=== PATIENT | male | born 1945 | race Caucasian/White ===

== ENCOUNTER 2019-03-30 18:25 | Inpatient (IN) | payer MEDICARE ==
[2019-03-30 19:00] LABS: ABSOLUTE EOSINOPHILS # (AUTO) 0.4 10^3/uL (0.0-0.6); ABSOLUTE LYMPHOCYTES (AUTO) 1.6 10^3/uL (0.5-4.7); ABSOLUTE MONOCYTES (AUTO) 0.6 10^3/uL (0.1-1.4); ABSOLUTE NEUT (AUTO) 2.5 10^3/uL (1.7-8.2); BASOPHILS % (AUTO) 0.7 % (0-2); EOSINOPHILS % (AUTO) 8.4 % (0-6); HEMATOCRIT 37.5 % (37.9-51.0); HEMOGLOBIN 12.3 g/dL (13.5-17.0); LYMPHOCYTES % (AUTO) 31.9 % (13-45); MEAN CORPUSCULAR HEMOGLOBIN 34.6 pg (27.0-33.4); MEAN CORPUSCULAR HGB CONC 32.9 g/dL (32.0-36.0); MEAN CORPUSCULAR VOLUME 105 fl (80-97); MONOCYTES % (AUTO) 11.3 % (3-13); PLATELET COUNT 185 10^3/uL (150-450); RED BLOOD COUNT 3.57 10^6/uL (4.35-5.55); SEGMENTED NEUTROPHILS % (AUTO) 47.7 % (42-78); TOTAL CELLS COUNTED % (AUTO) 100 %; WHITE BLOOD COUNT 5.2 10^3/uL (4.0-10.5)
[2019-03-30 19:04] LABS: INTERNATIONAL RATION (INR) 1.08; PROTHROMBIN TIME 14.6 SEC (11.4-15.4)
--- NOTE | 2019-03-30 19:09 | ER Document Report ---
ED General - General Stated Complaint: FEET SWELLING Time Seen by Provider: 03/30/19 18:33 Mode of Arrival: Medic Information source: Patient, Relative Notes: This is a 73-year-old man with a history of thyroid cancer, hyponatremia, chronic kidney disease, CHF (ejection fraction 20%), atrial fibrillation (no anticoagulation), bleeding ulcers. Patient is brought into the emergency room because of increasing swelling to the lower extremities and dyspnea on exertion with O2 sats at home going into the low 80s with activity. She denies chest pain. - HPI Onset: Last week Onset/Duration: Gradual Quality of pain: No pain Severity: None Pain Level: Denies Associated symptoms: Shortness of breath, Other. denies: Chest pain Exacerbated by: Walking Relieved by: Denies Similar symptoms previously: Yes Recently seen / treated by doctor: Yes - Related Data Allergies/Adverse Reactions: No Known Allergies Allergy (Verified 03/30/19 21:31) Past Medical History - General Information source: Patient, Relative - Social History Smoking Status: Unknown if Ever Smoked Cigarette use (# per day): No Chew tobacco use (# tins/day): No Frequency of alcohol use: None Drug Abuse: None Lives with: Family Family History: None Patient has suicidal ideation: No Patient has homicidal ideation: No - Past Medical History Cardiac Medical History: Reports: Hx Atrial Fibrillation, Hx Congestive Heart Failure Pulmonary Medical History: Reports: None EENT Medical History: Reports: None Neurological Medical History: Reports: None Endocrine Medical History: Reports: Hx Hypothyroidism Renal/ Medical History: Reports: Other - Chronic kidney disease Malignancy Medical History: Reports Other - Thyroid cancer GI Medical History: Reports: None Musculoskeletal Medical History: Reports None Psychiatric Medical History: Reports: None Traumatic Medical History: Reports: None Infectious Medical History: Reports: None Surgical Hx: Negative Review of Systems - Review of Systems Constitutional: denies: Chills, Fever EENT: No symptoms reported Cardiovascular: See HPI Respiratory: See HPI Gastrointestinal: No symptoms reported Genitourinary: No symptoms reported Male Genitourinary: No symptoms reported Musculoskeletal: See HPI Skin: See HPI Hematologic/Lymphatic: No symptoms reported Neurological/Psychological: No symptoms reported Physical Exam - Vital signs Vitals: Resp 23 H 03/30/19 18:37 Notes: Physical exam: GENERAL: Blood pressure 104/86, pulse 92, respiratory rate 30, O2 sat 98% on 2 L HEAD: Atraumatic, normocephalic. EYES: Pupils equal round and reactive to light, extraocular movements intact, sclera anicteric, conjunctiva are normal. ENT: TMs normal, nares patent, oropharynx clear without exudates. Moist mucous membranes. NECK: Normal range of motion, supple without obvious mass or JVD. LUNGS: Crackles at the bases HEART: Regular rate and rhythm without murmurs, rubs or gallops. ABDOMEN: Soft, normoactive bowel sounds. No tenderness to palpation. No guarding, no rebound. No masses appreciated. EXTREMITIES: 3+ lower extremity edema NEUROLOGICAL: Cranial nerves II through XII grossly intact. Normal speech, moving all extremities. PSYCH: Normal mood, normal affect. SKIN: Warm, Dry, normal turgor, no rashes or lesions noted. Course - Vital Signs Vital signs: Temp Pulse Resp BP Pulse Ox 97.7 F 76 16 95/62 L 94 03/30/19 22:31 03/31/19 00:14 03/31/19 00:14 03/30/19 23:01 03/31/19 00:14 - Laboratory Result Diagrams: 03/30/19 18:45 03/30/19 18:45 Laboratory results interpreted by me: 03/30/19 03/30/19 03/30/19 18:45 18:45 18:45 RBC 3.57 L Hgb 12.3 L Hct 37.5 L MCV 105 H MCH 34.6 H RDW 15.0 H Eosinophils % 8.4 H Direct Bilirubin 0.5 H NT-Pro-B Natriuret Pep 8380 H Total Protein 6.2 L Albumin 3.0 L Digoxin 03/30/19 18:45 RBC Hgb Hct MCV MCH RDW Eosinophils % Direct Bilirubin NT-Pro-B Natriuret Pep Total Protein Albumin Digoxin 0.72 L - Diagnostic Test Radiology reviewed: Image reviewed, Reports reviewed - Chest x-ray shows CHF - EKG Interpretation by Me Rhythm: A.Fib - EKG shows atrial fibrillation Critical Care Note - Critical Care Note Total time excluding time spent on procedures (mins): 60 Discharge - Discharge Clinical Impression: Decompensated heart failure Condition: Stable Disposition: ADMITTED INPATIENT Admitting Provider: Annalisa (Hospitalist) Unit Admitted: Telemetry
[2019-03-30 19:20] LABS: ALANINE AMINOTRANSFERASE 36 U/L (21-72); ALKALINE PHOSPHATASE 99 U/L (38-126); ANION GAP 8 (5-19); ASPARTATE AMINO TRANSFERASE 30 U/L (17-59); BILIRUBIN,DIRECT 0.5 mg/dL (0.0-0.4); BILIRUBIN,TOTAL 0.9 mg/dL (0.2-1.3); BLOOD UREA NITROGEN 15 mg/dL (7-20); CALCIUM 8.6 mg/dL (8.4-10.2); CARBON DIOXIDE 30 mmol/L (22-30); CHLORIDE 105 mmol/L (98-107); GLUCOSE 83 mg/dL (75-110); POTASSIUM 3.8 mmol/L (3.6-5.0); SODIUM 143.3 mmol/L (137-145); TOTAL PROTEIN 6.2 g/dL (6.3-8.2)
--- NOTE | 2019-03-30 19:59 | RADIOLOGY REPORT (SQ) ---
EXAM DESCRIPTION: CHEST SINGLE VIEW COMPLETED DATE/TIME: 03/30/2019 7:24 pm REASON FOR STUDY: sob COMPARISON: None. EXAM PARAMETERS: NUMBER OF VIEWS: One view. TECHNIQUE: Single frontal radiographic view of the chest acquired. RADIATION DOSE: NA LIMITATIONS: None. FINDINGS: LUNGS AND PLEURA: No pneumothorax. 7 cm Confluent opacity -consolidation in the left lat eral mid lung with adjacent increased interstitial -nodular opacities and small left pleural effusion . The right lung shows no consolidation or pleural effusion. MEDIASTINUM AND HILAR STRUCTURES: Age-appropriate contour. HEART AND VASCULAR STRUCTURES: Mild cardiac enlargement. BONES: No acute findings. HARDWARE: None in the chest. OTHER: No other significant finding. IMPRESSION: 7 cm Confluent opacity -consolidation in the left lateral mid lung with adjacent increas ed interstitial -nodular opacities and small left pleural effusion. COMMENT: Follow-up radiograph recommended to confirm clearing after treatment. TECHNICAL DOCUMENTATION: JOB ID: [id number] [place]-72 2010 [employer]- All Rights Reserved Reading location - IP/workstation name: [email or web address]
[2019-03-30] MEDS ORDERED: FUROSEMIDE INJ/PF 40 MG/4 ML SDV IV ONE (20:16)
[2019-03-30] MEDS ORDERED: ACETAMINOPHEN 325 MG TABLET PO PRN (21:04)
[2019-03-30] MEDS ORDERED: ONDANSETRON HCL INJ/PF 4 MG/2 ML SDV IV PRN (21:04)
[2019-03-30] MEDS ORDERED: MAG HYDROX/AL HYDROX/SIMETH SUSP 30 ML UDCUP PO PRN (21:04)
[2019-03-30] MEDS ORDERED: MAGNESIUM HYDROXIDE SUSP 30 ML UDCUP PO PRN (21:04)
[2019-03-30] MEDS ORDERED: NICOTINE 21 MG/24 HR PATCH.TD24 TD PRN (21:17)
[2019-03-30] MEDS ORDERED: LEVALBUTEROL HCL NEB 0.63 MG/3 ML AMPUL NEB PRN (21:17)
[2019-03-30] MEDS ORDERED: MORPHINE SULFATE 10 MG/ML INJ IV PRN ×4 (21:17→21:28)
[2019-03-30] MEDS: FUROSEMIDE INJ/PF 40 MG/4 ML SDV IV SCH (21:33)
[2019-03-30] MEDS ORDERED: DIGOXIN INJ 0.5 MG/2 ML AMPULE IV ONE (21:45)
[2019-03-30] MEDS: HEPARIN SOD (PORCINE) 5,000 UNIT/ML 1 ML SYRINGE SUBCUT SCH (22:40)
--- NOTE | 2019-03-30 23:02 | EKG REPORT ---
SEVERITY:- ABNORMAL ECG - ATRIAL FIBRILLATION PREMATURE COMPLEX, VENTRICULAR LAD, CONSIDER LAFB OR INFERIOR INFARCT NONSPECIFIC T ABNORMALITIES, ANT-LAT LEADS : Confirmed by: Arnie Nava 30-Mar-2019 23:01:52
--- NOTE | 2019-03-30 23:38 | PDOC H&P ---
History of Present Illness Admission Date/PCP: 03/30/2019 PARAS MARC MD Patient complains of: Dyspnea History of Present Illness: NUBIA MAN is a 73 year old male who presented to the emergency room with a 2- day history of dyspnea. He admits progressively worsening dyspnea on exertion accompanied by increased swelling in his lower extremities and exertional hypoxia noted on a home O2 saturation monitor. His exertional dyspnea is now moderate to severe and he admits prior similar episodes related to his chronic systolic congestive heart failure. He has not identified any other aggravating or ameliorating factors for this episode of dyspnea. In the emergency room he was found to have an elevated BNP with significant peripheral edema and a chest x-ray consistent with congestive heart failure. Additionally a 7 cm opacity was noted in the left mid and upper lung angelo. Patient was subsequently admitted to the hospital for further evaluation and treatment. Past Medical History Cardiac Medical History: Reports: Atrial Fibrillation - Chronic atrial fibrillation with well-controlled rate, Congestive Heart Failure - Chronic systolic congestive heart failure ejection fraction of 20% reported Denies: Coronary Artery Disease, DVT, Myocardial Infarction, Hyperlipidema, Hypertension, Pulmonary Embolism Pulmonary Medical History: Reports: Bronchitis, Chronic Obstructive Pulmonary Disease (COPD) - Continues to smoke heavily, Pneumonia, Respiratory Failure - Secondary to CHF exacerbations, Sleep Apnea EENT Medical History: Denies: Cataracts, Ears - Hearing aids Neurological Medical History: Denies: Hemorrhagic CVA, Ischemic CVA, Seizures Endocrine Medical History: Reports: Hypothyroidism Denies: Diabetes Mellitus Type 1, Diabetes Mellitus Type 2, Hyperthyroidism, Obesity Renal/ Medical History: Reports: Chronic Kidney Disease Denies: Nephrolithiasis Malignancy Medical History: Reports: Lymphoma, Other - Thyroid cancer, stomach cancer GI Medical History: Reports: Cirrhosis - Reports history of liver disease, history of severe alcoholism sober x2 mo, Peptic Ulcer Disease, Other - Reports history of bleeding ulcers Denies: Hepatitis Musculoskeltal Medical History: Denies: Arthritis, Gout Skin Medical History: Denies: Eczema, Psoriasis Psychiatric Medical History: Reports: Alcohol Dependency, Dementia - History of early Alzheimer's dementia and alcoholic dementia, Tobacco Dependency Denies: Substance Abuse Traumatic Medical History: Reports: None Hematology: Denies: Anemia, Bleeding Tendencies Infectious Medical History: Reports: None Past Surgical History Past Surgical History: Stomach resection for cancer, thyroidectomy for cancer. Past Surgical History: Reports: Thyroidectomy, Other - Multiple skin grafts for severe mathews, 6 surgeries for bowel obstruction Social History Information Source: Patient, Relative Lives with: Family Smoking Status: Current Every Day Smoker Frequency of Alcohol Use: None Amount of Alcoholic Beverages Per Day: History severe chronic alcoholism, sober x2 months Hx Recreational Drug Use: No Drugs: None Hx Prescription Drug Abuse: No - Advance Directive Resuscitation Status: Full Code Surrogate healthcare decision maker:: His son Angus Family History Family History: DM, Malignancy, Other - Thyroid cancer, Alzheimer's dementia, congestive heart failure. denies: CAD, Hypertension Parental Family History Reviewed: Yes Children Family History Reviewed: No Sibling(s) Family History Reviewed.: Yes Medication/Allergy Home Medications: Digoxin [Lanoxin 0.125 mg Tablet] 0.125 mg PO DAILY 03/30/19 Furosemide [Lasix 20 mg Tablet] 20 mg PO QAM 03/30/19 Levothyroxine Sodium [Synthroid 0.088 mg Tablet] 88 mcg PO DAILY 03/30/19 Metoprolol Succinate [Toprol Xl] 25 mg PO DAILY 03/30/19 Potassium Chloride [K-Tab] 10 meq PO DAILY 03/30/19 Tamsulosin HCl [Flomax] 0.4 mg PO DAILY 03/30/19 Allergies/Adverse Reactions: No Known Allergies Allergy (Verified 03/30/19 21:31) Review of Systems Constitutional: ABSENT: chills, fever(s) Eyes: ABSENT: visual disturbances, other - Eye pain Ears: ABSENT: hearing changes, other - Ear pain Nose, Mouth, and Throat: ABSENT: mouth pain, sore throat Cardiovascular: PRESENT: as per HPI, dyspnea on exertion, edema. ABSENT: chest pain, orthropnea, palpitations Respiratory: PRESENT: as per HPI, dyspnea. ABSENT: cough Gastrointestinal: ABSENT: abdominal pain, constipation, diarrhea, nausea, vomiting Genitourinary: ABSENT: dysuria, hematuria Musculoskeletal: ABSENT: back pain, joint swelling, muscle weakness Integumentary: ABSENT: pruritus, rash Neurological: PRESENT: memory loss - Mild due to early Alzheimer's dementia and alcoholic dementia. ABSENT: confusion, convulsions, focal weakness, syncope Psychiatric: ABSENT: anxiety, depression Endocrine: ABSENT: cold intolerance, heat intolerance Hematologic/Lymphatic: ABSENT: easy bleeding, easy bruising Physical Exam Vital Signs: Temp Pulse Resp BP Pulse Ox 98.3 F 31 H 104/86 H 98 03/30/19 19:33 03/30/19 19:01 03/30/19 19:01 03/30/19 19:01 Intake & Output 03/28/19 03/29/19 03/30/19 23:59 23:59 23:59 Weight 70.76 kg General appearance: PRESENT: cooperative, mild distress - Mild dyspnea Head exam: PRESENT: atraumatic, normocephalic Eye exam: ABSENT: conjunctival injection, scleral icterus Ear exam: PRESENT: normal external ear exam. ABSENT: bleeding, drainage Mouth exam: PRESENT: dry mucosa, neck supple Neck exam: PRESENT: JVD. ABSENT: thyromegaly, tracheal deviation Respiratory exam: PRESENT: accessory muscle use - Minimal accessory muscle use at the time of my exam, prolonged expiratory phas - Mildly prolonged expiratory phase noted, rales - Fine bibasilar rales noted in the lower one third of both lung angelo, retraction - Minimal supraclavicular retractions noted at the time of my exam, symmetrical, tachypnea - Moderate tachypnea noted on exam. ABSENT: wheezes Cardiovascular exam: PRESENT: gallop - S4 gallop noted, irregular rhythm - Irregularly irregular rate and rhythm. ABSENT: clicks, rubs Pulses: PRESENT: normal radial pulses, normal dorsalis pedis pul - Dorsalis pedis pulses decreased bilaterally due to severe edema Vascular exam: PRESENT: normal capillary refill. ABSENT: pallor GI/Abdominal exam: PRESENT: normal bowel sounds, soft Rectal exam: PRESENT: deferred Extremities exam: PRESENT: other - 3+ pretibial pitting edema bilaterally. ABSENT: joint swelling, tenderness Musculoskeletal exam: ABSENT: deformity, dislocation Neurological exam: PRESENT: alert, oriented to person, oriented to place, oriented to time, oriented to situation, CN II-XII grossly intact, other - Mild short-term memory deficits on gross screening. ABSENT: motor sensory deficit Psychiatric exam: PRESENT: appropriate affect, normal mood Skin exam: PRESENT: dry, intact, warm. ABSENT: jaundice, rash, urticaria Results Laboratory Results: 03/30/19 18:45 03/30/19 18:45 03/30/19 03/30/19 18:45 18:45 WBC 5.2 RBC 3.57 L Hgb 12.3 L Hct 37.5 L MCV 105 H MCH 34.6 H MCHC 32.9 RDW 15.0 H Plt Count 185 Seg Neutrophils % 47.7 Lymphocytes % 31.9 Monocytes % 11.3 Eosinophils % 8.4 H Basophils % 0.7 Absolute Neutrophils 2.5 Absolute Lymphocytes 1.6 Absolute Monocytes 0.6 Absolute Eosinophils 0.4 Absolute Basophils 0.0 Sodium 143.3 Potassium 3.8 Chloride 105 Carbon Dioxide 30 Anion Gap 8 BUN 15 Creatinine 0.80 Est GFR ( Amer) > 60 Est GFR (Non-Af Amer) > 60 Glucose 83 Calcium 8.6 Total Bilirubin 0.9 AST 30 ALT 36 Alkaline Phosphatase 99 Total Protein 6.2 L Albumin 3.0 L 03/30/19 03/30/19 18:45 18:45 Troponin I 0.019 NT-Pro-B Natriuret Pep 8380 H Impressions: Chest X-Ray 03/30/19 19:10 IMPRESSION: 7 cm Confluent opacity -consolidation in the left lateral mid lung with adjacent increased interstitial -nodular opacities and small left pleural effusion. Assessment and Plan - Diagnosis (1) Acute respiratory failure with hypoxia Is this a current diagnosis for this admission?: Yes Plan: Patient will receive supplemental oxygen via nasal cannula or noninvasive pressure assist devices as required for maintenance of his oxygen saturation between 90 and 94%. Patient may well have sleep apnea and this may be evaluated on an outpatient basis by Dr. Sales will be seeing the patient for an inpatient cardiology consultation. His oxygen saturation be monitored throughout his hospital course. (2) Acute on chronic systolic congestive heart failure Is this a current diagnosis for this admission?: Yes Plan: Patient will be treated with IV digoxin to raise his digoxin level to therapeutic level. Additionally he will be treated with intravenous Lasix 40 mg every 12 hours. He will be given other symptomatic and supportive therapy for his associated dyspnea including supplemental oxygen. Daily digoxin levels, CBC, metabolic profile and magnesium level will be obtained as part of monitoring the course of his heart failure. Patient will also have available morphine sulfate 1 mg IV q. one hour as needed for moderate dyspnea and tachypnea, and 2 mg IV every hour as needed for severe dyspnea and tachycardia. An echocardiogram will also be obtained. The patient is admitted to the CHF protocol. (3) Chronic atrial fibrillation Is this a current diagnosis for this admission?: Yes Plan: Patient's chronic atrial fibrillation will be managed with utilization of his usual atrial fibrillation and congestive heart failure medications including digoxin. His digoxin level will be increased to 0.25 mg p.o. daily. A daily digoxin level will be obtained. A cardiology consultation with Dr. Sales will be obtained. (4) Tobacco use disorder, severe, dependence Is this a current diagnosis for this admission?: Yes Plan: Smoking cessation is recommended and counseled in brief. Nicotine replacement patch is available for the patient's use. (5) Abnormality of lung on chest x-ray Is this a current diagnosis for this admission?: Yes Plan: A CT scan of the chest with contrast has been ordered for the morning. Further follow-up will be based upon the results of that evaluation. - Time Time Spent with patient: 35 or more minutes Smoking Cessation Education: 3 to 10 minutes Anticipated discharge: Home with Homehealth - Inpatient Certification Based on my medical assessment, after consideration of the patient's comorbidities, presenting symptoms, or acuity I expect that the services needed warrant INPATIENT care.: Yes I certify that my determination is in accordance with my understanding of Medicare's requirements for reasonable and necessary INPATIENT services [42 CFR 412.3e].: Yes Medical Necessity: Need Close Monitoring Due to Risk of Patient Decompensation, Need For Continuous Telemetry Monitoring, Risk of Complication if Not Cared For in Hospital
[2019-03-31] MEDS: IPRATROPIUM BROMIDE 0.02% NEB 0.5 MG/2.5 ML AMPUL NEB SCH ×4 (00:11→23:55)
[2019-03-31] MEDS: LEVALBUTEROL HCL NEB 1.25 MG/3 ML AMPUL NEB SCH ×4 (00:11→23:55)
[2019-03-31 02:04] LABS: CREATINE KINASE MB 0.66 ng/mL (<4.55)
[2019-03-31 02:08] LABS: TROPONIN I 0.018 ng/mL
[2019-03-31] MEDS: LEVOTHYROXINE SODIUM 0.088 MG TABLET PO SCH (06:34)
[2019-03-31] MEDS: HEPARIN SOD (PORCINE) 5,000 UNIT/ML 1 ML SYRINGE SUBCUT SCH ×3 (06:35→22:43)
[2019-03-31 07:15] LABS: ABSOLUTE EOSINOPHILS # (AUTO) 0.5 10^3/uL (0.0-0.6); ABSOLUTE LYMPHOCYTES (AUTO) 1.2 10^3/uL (0.5-4.7); ABSOLUTE MONOCYTES (AUTO) 0.4 10^3/uL (0.1-1.4); ABSOLUTE NEUT (AUTO) 2.5 10^3/uL (1.7-8.2); BASOPHILS % (AUTO) 0.6 % (0-2); EOSINOPHILS % (AUTO) 9.9 % (0-6); HEMATOCRIT 34.9 % (37.9-51.0); HEMOGLOBIN 11.6 g/dL (13.5-17.0); LYMPHOCYTES % (AUTO) 25.9 % (13-45); MEAN CORPUSCULAR HEMOGLOBIN 34.7 pg (27.0-33.4); MEAN CORPUSCULAR HGB CONC 33.2 g/dL (32.0-36.0); MEAN CORPUSCULAR VOLUME 104 fl (80-97); MONOCYTES % (AUTO) 9.5 % (3-13); PLATELET COUNT 164 10^3/uL (150-450); RED BLOOD COUNT 3.34 10^6/uL (4.35-5.55); RED CELL DISTRIBUTION WIDTH 15.1 % (11.5-14.0); SEGMENTED NEUTROPHILS % (AUTO) 54.1 % (42-78); TOTAL CELLS COUNTED % (AUTO) 100 %; WHITE BLOOD COUNT 4.6 10^3/uL (4.0-10.5)
[2019-03-31 07:16] LABS: VENOUS BLOOD BASE EXCESS 6.9 mmol/L; VENOUS BLOOD HCO3 32.1 mmol/L (20-32); VENOUS BLOOD PCO2 47.9 mmHg (35-63); VENOUS BLOOD PH 7.44 (7.30-7.42)
[2019-03-31 07:36] LABS: CHOLESTEROL 123.48 mg/dL (0-200); TRIGLYCERIDES 81 mg/dL (<150)
[2019-03-31 07:46] LABS: DIRECT LDL 85 mg/dL (<100)
[2019-03-31 07:53] LABS: FREE T3 3.41 pg/mL (2.77-5.27); FREE T4 (FREE THYROXINE) 1.06 ng/dL (0.78-2.19)
[2019-03-31 07:55] LABS: CREATINE KINASE MB 0.63 ng/mL (<4.55); TROPONIN I 0.018 ng/mL
[2019-03-31 08:06] LABS: THYROID STIMULATING HORMONE 16.2 uIU/mL (0.47-4.68)
[2019-03-31] MEDS: BUDESONIDE NEB 0.5 MG/2 ML AMPUL NEB SCH ×2 (08:19→19:39)
[2019-03-31] MEDS ORDERED: POTASSIUM CHLORIDE 10 MEQ CAPSULE.ER PO SCH (10:00)
--- NOTE | 2019-03-31 10:09 | RADIOLOGY REPORT (SQ) ---
EXAM DESCRIPTION: CT CHEST WITH COMPLETED DATE/TIME: 03/31/2019 9:33 am REASON FOR STUDY: 7 cm opacity left lung COMPARISON: Chest radiograph TECHNIQUE: CT scan of the chest performed using helical scanning technique with dynamic intravenous contrast injection. Images reviewed with lung, soft tissue and bone windows. Reconstructed coronal and sagittal MPR and MIP images reviewed. All images stored on PACS. All CT scanners at this facility use dose modulation, iterative reconstruction, and/or weight based d osing when appropriate to reduce radiation dose to as low as reasonably achievable (ALARA). [facility]: Dose Right [facility]: CareDose [facility]: Dose Right [facility]: Teradose 4D [facility]: [email or web address] CONTRAST TYPE AND DOSE: contrast/concentration: Isovue 350.00 mg/ml; Total Contrast Delivered: 80.0 ml; Total Saline Delivered: 55.0 ml RENAL FUNCTION: GFR > 60. RADIATION DOSE: CT Rad equipment meets quality standard of care and radiation dose reduction techniq ues were employed. CTDIvol: 9.2 mGy. DLP: 368 mGy-cm. . LIMITATIONS: None. FINDINGS: LUNGS AND PLEURA: Diffuse ground-glass opacities throughout both lungs. More prominent co nsolidation in the left upper lobe with fluid in the fissure. Moderate right pleural effusion is sma ll left pleural effusion. HILAR AND MEDIASTINAL STRUCTURES: No identified masses or abnormal nodes. HEART AND VASCULAR STRUCTURES: Retrograde opacification of the hepatic veins which suggests right hea rt failure. HARDWARE: None in the chest. UPPER ABDOMEN: No significant findings. Limited exam. THYROID AND OTHER SOFT TISSUES: No masses. No adenopathy. BONES: Healing sternal fracture. OTHER: No other significant finding. IMPRESSION: Vascular congestion. Bilateral pleural effusions right greater than left. Fluid in the fissures on the left. Left upper lobe pneumonia. TECHNICAL DOCUMENTATION: JOB ID: [id number] Quality ID # [id number]: Final reports with documentation of one or more dose reduction techniques (e.g., Au tomated exposure control, adjustment of the mA and/or kV according to patient size, use of iterative reconstruction technique) 2010 [employer]- All Rights Reserved Reading location - IP/workstation name: [email or web address]
[2019-03-31] MEDS: DOCUSATE SODIUM 100 MG CAPSULE PO SCH (10:38)
[2019-03-31] MEDS: TAMSULOSIN HCL 0.4 MG CAP.SR.24H PO SCH (10:38)
[2019-03-31] MEDS: FUROSEMIDE INJ/PF 40 MG/4 ML SDV IV SCH (10:39)
[2019-03-31] MEDS: DIGOXIN 0.125 MG TABLET PO SCH (10:39)
[2019-03-31] MEDS: METOPROLOL SUCCINATE 25 MG TAB.SR.24H PO SCH (10:39)
--- NOTE | 2019-03-31 12:00 | PDOC CONSULTATION ---
Consultation Consult Date: 03/31/19 Attending physician:: MARGAUX PERKINS Consult reason:: Concern of left upper lobe mass History of Present Illness Admission Date/PCP: 03/30/19 20:59 PARAS MARC MD Patient complains of: Shortness of breath cough History of Present Illness: NUBIA MAN is a 73 year old male with known history of COPD as well as CHF, about 2 months ago patient was admitted to hospital in [facility]. That is where he was living. He was found to be severely hyponatremic per his son, was treated also for COPD exacerbation as well as CHF exacerbation. After that discharge his son decided to bring him back here to live with him. So he has been here for only a few months. He again started having shortness of breath and cough and his son brought him here. He had a chest x-ray which indicated concern of a left upper lobe mass. This is followed by a CT which showed consolidation in the left upper lobe, but also changes in the left upper lobe bilaterally concerning for vascular congestion, there also is a right pleural effusion. He seems a little bit better today. Of note, he has heavy EtOH history, is only been drinking about 2 drinks a day now, but before that he was much heavier before he moved here from [place]. Also, his family tells me history of 3 different cancers. Apparently in the year 1999 or 2000, he was diagnosed with thyroid cancer, lymphoma and stomach cancer in was treated with all of those cancers and apparently is cancer free. Will need to get records from that. Past Medical History Cardiac Medical History: Reports: Atrial Fibrillation, Congestive Heart Failure Denies: Coronary Artery Disease, DVT, Myocardial Infarction, Hyperlipidema, Hypertension, Pulmonary Embolism Pulmonary Medical History: Reports: None, Bronchitis, Chronic Obstructive Pulmonary Disease (COPD) - Continues to smoke heavily, Pneumonia, Respiratory F ailure - Secondary to CHF exacerbations, Sleep Apnea EENT Medical History: Reports: None Denies: Cataracts, Ears - Hearing aids Neurological Medical History: Reports: None Denies: Hemorrhagic CVA, Ischemic CVA, Seizures Endocrine Medical History: Reports: Hypothyroidism Denies: Diabetes Mellitus Type 1, Diabetes Mellitus Type 2, Hyperthyroidism, Obesity Renal/ Medical History: Reports: Chronic Kidney Disease, Other - Chronic kidney disease Denies: Nephrolithiasis Malignancy Medical History: Reports: Lymphoma, Other - Thyroid cancer GI Medical History: Reports: None, Cirrhosis - Reports history of liver disease, history of severe alcoholism sober x2 mo, Peptic Ulcer Disease, Other - Reports history of bleeding ulcers Denies: Hepatitis Musculoskeltal Medical History: Reports: None Denies: Arthritis, Gout Skin Medical History: Denies: Eczema, Psoriasis Psychiatric Medical History: Reports: None, Alcohol Dependency, Dementia - History of early Alzheimer's dementia and alcoholic dementia, Depression, Tobacco Dependency Denies: Substance Abuse Traumatic Medical History: Reports: None Hematology: Denies: Anemia, Bleeding Tendencies Infectious Medical History: Reports: None Past Surgical History Past Surgical History: Reports: Thyroidectomy, Other - Multiple skin grafts for severe mathews, 6 surgeries for bowel obstruction Social History Information Source: Patient Lives with: Family Smoking Status: Unknown if Ever Smoked Cigarettes Packs Per Day: 0.5 Frequency of Alcohol Use: None Hx Recreational Drug Use: No Drugs: None Hx Prescription Drug Abuse: No - Advance Directive Resuscitation Status: Full Code Family History Family History: None Parental Family History Reviewed: Yes Children Family History Reviewed: Yes Sibling(s) Family History Reviewed.: Yes Medication/Allergy Home Medications: Digoxin [Lanoxin 0.125 mg Tablet] 0.125 mg PO DAILY 03/30/19 Furosemide [Lasix 20 mg Tablet] 20 mg PO QAM 03/30/19 Levothyroxine Sodium [Synthroid 0.088 mg Tablet] 88 mcg PO DAILY 03/30/19 Metoprolol Succinate [Toprol Xl] 25 mg PO DAILY 03/30/19 Potassium Chloride [K-Tab] 10 meq PO DAILY 03/30/19 Tamsulosin HCl [Flomax] 0.4 mg PO DAILY 03/30/19 Allergies/Adverse Reactions: No Known Allergies Allergy (Verified 03/30/19 21:31) Review of Systems Constitutional: ABSENT: chills, fever(s), headache(s), weight gain, weight loss Eyes: ABSENT: visual disturbances Ears: ABSENT: hearing changes Cardiovascular: ABSENT: chest pain, dyspnea on exertion, edema, orthropnea, p alpitations Respiratory: ABSENT: cough, hemoptysis Gastrointestinal: ABSENT: abdominal pain, constipation, diarrhea, hematemesis, hematochezia, nausea, vomiting Genitourinary: ABSENT: dysuria, hematuria Musculoskeletal: ABSENT: joint swelling Integumentary: ABSENT: rash, wounds Neurological: ABSENT: abnormal gait, abnormal speech, confusion, dizziness, focal weakness, syncope Psychiatric: ABSENT: anxiety, depression, homidical ideation, suicidal ideation Endocrine: ABSENT: cold intolerance, heat intolerance, polydipsia, polyuria Hematologic/Lymphatic: ABSENT: easy bleeding, easy bruising Physical Exam Vital Signs: Temp Pulse Resp BP Pulse Ox 98.0 F 86 20 109/70 100 03/31/19 08:00 03/31/19 08:00 03/31/19 08:00 03/31/19 08:00 03/31/19 08:00 Intake & Output 03/30/19 03/31/19 04/01/19 06:59 06:59 06:59 Output Total 1025 Balance -1025 Weight 73.8 kg General appearance: PRESENT: no acute distress, well-developed, well-nourished Head exam: PRESENT: atraumatic, normocephalic Eye exam: PRESENT: conjunctiva pink, EOMI, PERRLA. ABSENT: scleral icterus Ear exam: PRESENT: normal external ear exam Mouth exam: PRESENT: moist, tongue midline Neck exam: ABSENT: carotid bruit, JVD, lymphadenopathy, thyromegaly Respiratory exam: PRESENT: clear to auscultation luis. ABSENT: rales, rhonchi, wheezes Cardiovascular exam: PRESENT: RRR. ABSENT: diastolic murmur, rubs, systolic murmur Pulses: PRESENT: normal dorsalis pedis pul Vascular exam: PRESENT: normal capillary refill GI/Abdominal exam: PRESENT: normal bowel sounds, soft. ABSENT: distended, guarding, mass, organolmegaly, rebound, tenderness Rectal exam: PRESENT: deferred Extremities exam: PRESENT: full ROM. ABSENT: calf tenderness, clubbing, pedal edema Neurological exam: PRESENT: alert, awake, oriented to person, oriented to place, oriented to time, oriented to situation, CN II-XII grossly intact. ABSENT: motor sensory deficit Psychiatric exam: PRESENT: appropriate affect, normal mood. ABSENT: homicidal ideation, suicidal ideation Skin exam: PRESENT: dry, intact, warm. ABSENT: cyanosis, rash Results Laboratory Results: 03/31/19 06:48 03/30/19 18:45 03/30/19 03/30/19 03/31/19 18:45 18:45 06:48 WBC 5.2 4.6 RBC 3.57 L 3.34 L Hgb 12.3 L 11.6 L Hct 37.5 L 34.9 L MCV 105 H 104 H MCH 34.6 H 34.7 H MCHC 32.9 33.2 RDW 15.0 H 15.1 H Plt Count 185 164 Seg Neutrophils % 47.7 54.1 Lymphocytes % 31.9 25.9 Monocytes % 11.3 9.5 Eosinophils % 8.4 H 9.9 H Basophils % 0.7 0.6 Absolute Neutrophils 2.5 2.5 Absolute Lymphocytes 1.6 1.2 Absolute Monocytes 0.6 0.4 Absolute Eosinophils 0.4 0.5 Absolute Basophils 0.0 0.0 VBG pH VBG pCO2 VBG HCO3 VBG Base Excess Sodium 143.3 Potassium 3.8 Chloride 105 Carbon Dioxide 30 Anion Gap 8 BUN 15 Creatinine 0.80 Est GFR ( Amer) > 60 Est GFR (Non-Af Amer) > 60 Glucose 83 Calcium 8.6 Magnesium Total Bilirubin 0.9 AST 30 ALT 36 Alkaline Phosphatase 99 Total Protein 6.2 L Albumin 3.0 L Triglycerides Cholesterol LDL Cholesterol Direct VLDL Cholesterol HDL Cholesterol TSH Free T4 Free T3 pg/mL 03/31/19 03/31/19 03/31/19 06:48 06:48 06:48 WBC RBC Hgb Hct MCV MCH MCHC RDW Plt Count Seg Neutrophils % Lymphocytes % Monocytes % Eosinophils % Basophils % Absolute Neutrophils Absolute Lymphocytes Absolute Monocytes Absolute Eosinophils Absolute Basophils VBG pH 7.44 H VBG pCO2 47.9 VBG HCO3 32.1 H VBG Base Excess 6.9 Sodium Potassium Chloride Carbon Dioxide Anion Gap BUN Creatinine Est GFR ( Amer) Est GFR (Non-Af Amer) Glucose Calcium Magnesium 2.0 Total Bilirubin AST ALT Alkaline Phosphatase Total Protein Albumin Triglycerides 81 Cholesterol 123.48 LDL Cholesterol Direct 85 VLDL Cholesterol 16.0 HDL Cholesterol 38 L TSH 16.20 H Free T4 1.06 Free T3 pg/mL 3.41 03/30/19 03/30/19 03/31/19 18:45 18:45 00:52 Creatine Kinase 34 L CK-MB (CK-2) Troponin I 0.019 NT-Pro-B Natriuret Pep 8380 H 03/31/19 03/31/19 03/31/19 00:52 06:48 06:48 Creatine Kinase 31 L CK-MB (CK-2) 0.66 0.63 Troponin I 0.018 0.018 NT-Pro-B Natriuret Pep Impressions: Chest X-Ray 03/30/19 19:10 IMPRESSION: 7 cm Confluent opacity -consolidation in the left lateral mid lung with adjacent increased interstitial -nodular opacities and small left pleural effusion. Chest CT 03/31/19 07:00 IMPRESSION: Vascular congestion. Bilateral pleural effusions right greater than left. Fluid in the fissures on the left. Left upper lobe pneumonia. Status: Image reviewed by me Assessment & Plan - Diagnosis (1) Lung mass Is this a current diagnosis for this admission?: Yes Plan: Concern of left upper lobe lung mass, may be related to pneumonia but I reviewed the images and it is something that needs to be followed up. Agree with current management to treat COPD exacerbation/CHF exacerbation as well as pneumonia. Thereafter I probably repeat the CT within about 6 to 8 weeks. If there is still an abnormality in the left upper lobe I probably would do PET/CT to further evaluate the nodule and then do further diagnostics thereafter. I explained this plan to the family as well as son who is at bedside who agree with this plan. I will follow patient while in house and then upon discharge I will have him see us back within a few weeks. - Time Time Spent: Greater than 70 Minutes
--- NOTE | 2019-03-31 12:09 | XCELERA REPORT ---
Study ID: [id number] Name: NUBIA MAN Study Date: 03/31/2019 08:37 AM Patient Location: 4N^[id number]^A : 1945 (M/d/yyyy) Gender: Male Height: 71 in Age: 73 yrs Ethnicity: Weight: 156 lb Reason For Study: HX CHF BSA: 1.9 m2 Left Ventricle Technically difficult study. There is no LVH.Moderately to severely dilated LV.The IV septum and the LV apical segmrnts are akietic.The rest of the L segments are severely hypokintic.LVEF is severely reduced at less than 15%.LV distolic fuction not assessed due to atrial fibrillation.No Thrombus.Probably no ASD,VSD or PFO seen. Right Ventricle The right ventricle is mild to moderately dilated. The right ventricular systolic function is mild to moderately reduced. Atria The left atrium is mildly dilated. The right atrium is mild to moderately dilated. Mitral Valve There is no evidence of mitral valve prolapse. There is no vegetation seen on the mitral valve. There is no mitral valve stenosis. There is moderate mitral regurgitation. Tricuspid Valve There is no tricuspid stenosis. There is mild to moderate tricuspid regurgitation. Mild pulmonary hypertension.RVSP is 34 mm of Hg , with RA mean of 10. Aortic Valve There is no aortic valvular vegetation. There is aortic sclerosis without stenosis.No AR. Pulmonic Valve There is no pulmonic valvular stenosis. Moderate pulmonic valvular regurgitation. Great Vessels Mild aortic root dilatation. IVC not well visualised. Pericardium/Pleural There is no pericardial effusion. MMode/2D Measurements & Calculations RVDd: 3.8 cm LVIDd: 6.2 cm IVSd: 0.59 cm LVIDs: 5.3 cm LVPWd: 0.70 cm FS: 15.7 % Ao root diam: 3.8 cm EDV(Teich): 196.6 ml ESV(Teich): 132.8 ml Ao root area: 11.5 cm2 EF(Teich): 32.5 % LA dimension: 4.2 cm LVOT diam: 2.3 cm LVLd ap4: 9.0 cm LVOT area: 4.3 cm2 EDV(MOD-sp4): 129.0 ml LVLs ap4: 8.8 cm ESV(MOD-sp4): 74.0 ml EF(MOD-sp4): 42.6 % SV(MOD-sp4): 55.0 ml Doppler Measurements & Calculations MV E max consuelo: 96.3 cm/sec MV P1/2t max consuelo: 99.4 cm/sec MV A max consuelo: 32.1 cm/sec MV P1/2t: 70.1 msec MV E/A: 3.0 MVA(P1/2t): 3.1 cm2 MV dec slope: 415.3 cm/sec2 MV dec time: 0.18 sec Ao V2 max: 127.4 cm/sec LV V1 max P.1 mmHg Ao max P.5 mmHg LV V1 max: 87.9 cm/sec ALYSHA(V,D): 3.0 cm2 MR max consuelo: 354.7 cm/sec TV V2 max: 243.0 cm/sec MR max P.3 mmHg TV max P.6 mmHg PA V2 max: 61.8 cm/sec PI end-d consuelo: 183.2 cm/sec PA max P.5 mmHg MV P1/2t-pr_phl: 70.1 msec Interpretation Summary The left atrium is mildly dilated. The right atrium is mild to moderately dilated. There is no vegetation seen on the mitral valve. There is no mitral valve stenosis. There is moderate mitral regurgitation. There is no aortic valvular vegetation. There is aortic sclerosis without stenosis.No AR. There is no tricuspid stenosis. There is mild to moderate tricuspid regurgitation. Mild pulmonary hypertension.RVSP is 34 mm of Hg , with RA mean of 10. There is no pulmonic valvular stenosis. Moderate pulmonic valvular regurgitation. Mild aortic root dilatation. IVC not well visualised. There is no pericardial effusion. Technically difficult study. There is no LVH.Moderately to severely dilated LV.The IV septum and the LV apical segmrnts are akietic.The rest of the L segments are severely hypokintic.LVEF is severely reduced at less than 15%.LV distolic fuction not assessed due to atrial fibrillation.No Thrombus.Probably no ASD,VSD or PFO seen. This report has been electronically authenticated by Reading Physician: Laine Sales 03/31/2019 12:08 PM CC: TRU CHAN Referring Physician: TRU CHAN Performed By: Bryson Winters
[2019-03-31 14:16] LABS: CREATINE KINASE MB 0.62 ng/mL (<4.55); TROPONIN I 0.013 ng/mL
--- NOTE | 2019-03-31 15:08 | PDOC CONSULTATION ---
Consultation-Blank Consultation: Cardiology CONSULTATION by Dr. Laine Sales on 03/31/2019. Current Medications Generic Name Dose Route Start Last Admin Trade Name Freq PRN Reason Stop Dose Admin Acetaminophen 650 mg 03/30/19 21:04 Tylenol 325 Mg Tablet PO 04/29/19 21:03 Q4HP PRN pain or temp greater than 101F Al Hydrox/Mg Hydrox/Simethicone 30 ml 03/30/19 21:04 Maalox Plus Susp 30 Udcup PO 04/29/19 21:03 Q4HP PRN HEARTBURN Budesonide 0.5 mg 03/31/19 08:00 03/31/19 08:19 Pulmicort Neb 0.5 Mg/2 Ml Ampul NEB 04/30/19 07:59 0.5 mg RTBID CARI Administration Digoxin 0.25 mg 03/31/19 10:00 03/31/19 10:39 Lanoxin 0.125 Mg Tablet PO 04/30/19 09:59 0.25 mg DAILY CARI Administration Docusate Sodium 100 mg 03/31/19 10:00 03/31/19 10:38 Colace 100 Mg Capsule PO 04/30/19 09:59 100 mg DAILY CARI Administration Furosemide 40 mg 03/30/19 22:00 03/31/19 10:39 Lasix Inj/Pf 40 Mg/4 Ml Sdv IV 04/29/19 21:59 40 mg Q12 CARI Administration Heparin Sodium (Porcine) 5,000 unit 03/30/19 22:00 03/31/19 14:49 Heparin Inj 5,000 Units/Ml 1 Ml Syringe SUBCUT 04/29/19 21:59 5,000 unit Q8 CARI Administration Ipratropium [place] 0.5 mg 03/31/19 00:00 03/31/19 08:19 Atrovent 0.02% Neb 0.5 Mg/2.5 Ml Ampul NEB 04/30/19 00:00 0.5 mg RTQ8 CARI Administration Levalbuterol HCl 0.63 mg 03/30/19 21:17 Xopenex Neb 0.63 Mg/3 Ml Ampul NEB 04/29/19 21:16 RTQ2HP PRN SHORTNESS OF BREATH Levalbuterol HCl 1.25 mg 03/31/19 00:00 03/31/19 08:19 Xopenex Neb 1.25 Mg/3 Ml Ampul NEB 04/30/19 00:00 1.25 mg RTQ8 CARI Administration Levothyroxine Sodium 0.088 mg 03/31/19 06:00 03/31/19 06:34 Synthroid 0.088 Mg Tablet PO 04/30/19 05:59 0.088 mg Q6AM CARI Administration Magnesium Hydroxide 30 ml 03/30/19 21:04 Milk Of Magnesia 30 Ml Udcup PO 04/29/19 21:03 HSP PRN FOR CONSTIPATION Metoprolol Succinate 25 mg 03/31/19 10:00 03/31/19 10:39 Toprol Xl 25 Mg Tab.Sr PO 04/30/19 09:59 25 mg DAILY CARI Administration Morphine Sulfate 2 mg 03/30/19 21:27 Morphine 10 Mg/Ml Inj IV 04/06/19 21:26 Q2HP PRN PAIN SCALE 2-3/5 Morphine Sulfate 3 mg 03/30/19 21:28 Morphine 10 Mg/Ml Inj IV 04/06/19 21:27 Q2HP PRN PAIN SCALE 3-4/5 Morphine Sulfate 4 mg 03/30/19 21:28 Morphine 10 Mg/Ml Inj IV 04/06/19 21:27 Q2HP PRN PAIN SCALE 5/5 Nicotine 1 each 03/30/19 21:17 Nicoderm 21 Mg/24 Hr Transderm Patch TD 04/29/19 21:16 DAILYP PRN WITHDRAWAL SYMPTOMS Ondansetron HCl 4 mg 03/30/19 21:04 Zofran Inj/Pf 4 Mg/2 Ml Sdv IV 04/29/19 21:03 Q6HP PRN FOR NAUSEA/VOMITING Potassium Chloride 10 meq 03/31/19 10:00 03/31/19 10:38 Klor-Con 10 Meq Capsule Er PO 04/30/19 09:59 10 meq DAILY CARI Administration Sodium Chloride 2.5 ml 03/30/19 22:00 03/31/19 14:52 Saline Flush 2.5 Ml Monoject Prefil Syrin IV 04/29/19 21:59 2.5 ml Q8 CARI Administration Tamsulosin HCl 0.4 mg 03/31/19 10:00 03/31/19 10:38 Flomax 0.4 Mg Cap.Sr PO 04/30/19 09:59 0.4 mg DAILY CARI Administration Discontinued Medications Generic Name Dose Route Start Last Admin Trade Name Freq PRN Reason Stop Dose Admin Digoxin 0.125 mg 03/30/19 21:45 03/30/19 22:35 Lanoxin Inj 0.5 Mg/2 Ml Ampule IV 03/30/19 21:46 0.125 mg NOW ONE Administration Furosemide 40 mg 03/30/19 20:16 03/30/19 20:32 Lasix Inj/Pf 40 Mg/4 Ml Sdv IV 03/30/19 20:17 40 mg NOW ONE Administration Labs- Entire Visit 03/30/19 03/30/19 03/30/19 18:45 18:45 18:45 WBC 5.2 RBC 3.57 L Hgb 12.3 L Hct 37.5 L MCV 105 H MCH 34.6 H MCHC 32.9 RDW 15.0 H Plt Count 185 Seg Neutrophils % 47.7 Lymphocytes % 31.9 Monocytes % 11.3 Eosinophils % 8.4 H Basophils % 0.7 Absolute Neutrophils 2.5 Absolute Lymphocytes 1.6 Absolute Monocytes 0.6 Absolute Eosinophils 0.4 Absolute Basophils 0.0 PT 14.6 INR 1.08 VBG pH VBG pCO2 VBG HCO3 VBG Base Excess Sodium 143.3 Potassium 3.8 Chloride 105 Carbon Dioxide 30 Anion Gap 8 BUN 15 Creatinine 0.80 Est GFR ( Amer) > 60 Est GFR (Non-Af Amer) > 60 Glucose 83 Hemoglobin A1c % Calcium 8.6 Magnesium Total Bilirubin 0.9 Direct Bilirubin 0.5 H Neonat Total Bilirubin Not Reportable Neonat Direct Bilirubin Not Reportable Neonat Indirect Bili Not Reportable AST 30 ALT 36 Alkaline Phosphatase 99 Creatine Kinase CK-MB (CK-2) Troponin I NT-Pro-B Natriuret Pep Total Protein 6.2 L Albumin 3.0 L Triglycerides Cholesterol LDL Cholesterol Direct VLDL Cholesterol HDL Cholesterol TSH Free T4 Free T3 pg/mL Digoxin 03/30/19 03/30/19 03/30/19 18:45 18:45 18:45 WBC RBC Hgb Hct MCV MCH MCHC RDW Plt Count Seg Neutrophils % Lymphocytes % Monocytes % Eosinophils % Basophils % Absolute Neutrophils Absolute Lymphocytes Absolute Monocytes Absolute Eosinophils Absolute Basophils PT INR VBG pH VBG pCO2 VBG HCO3 VBG Base Excess Sodium Potassium Chloride Carbon Dioxide Anion Gap BUN Creatinine Est GFR ( Amer) Est GFR (Non-Af Amer) Glucose Hemoglobin A1c % Calcium Magnesium Total Bilirubin Direct Bilirubin Neonat Total Bilirubin Neonat Direct Bilirubin Neonat Indirect Bili AST ALT Alkaline Phosphatase Creatine Kinase CK-MB (CK-2) Troponin I 0.019 NT-Pro-B Natriuret Pep 8380 H Total Protein Albumin Triglycerides Cholesterol LDL Cholesterol Direct VLDL Cholesterol HDL Cholesterol TSH Free T4 Free T3 pg/mL Digoxin 0.72 L 03/31/19 03/31/19 03/31/19 00:52 00:52 06:48 WBC RBC Hgb Hct MCV MCH MCHC RDW Plt Count Seg Neutrophils % Lymphocytes % Monocytes % Eosinophils % Basophils % Absolute Neutrophils Absolute Lymphocytes Absolute Monocytes Absolute Eosinophils Absolute Basophils PT INR VBG pH VBG pCO2 VBG HCO3 VBG Base Excess Sodium Potassium Chloride Carbon Dioxide Anion Gap BUN Creatinine Est GFR ( Amer) Est GFR (Non-Af Amer) Glucose Hemoglobin A1c % Calcium Magnesium Total Bilirubin Direct Bilirubin Neonat Total Bilirubin Neonat Direct Bilirubin Neonat Indirect Bili AST ALT Alkaline Phosphatase Creatine Kinase 34 L 31 L CK-MB (CK-2) 0.66 Troponin I 0.018 NT-Pro-B Natriuret Pep Total Protein Albumin Triglycerides Cholesterol LDL Cholesterol Direct VLDL Cholesterol HDL Cholesterol TSH Free T4 Free T3 pg/mL Digoxin 03/31/19 03/31/19 03/31/19 06:48 06:48 06:48 WBC 4.6 RBC 3.34 L Hgb 11.6 L Hct 34.9 L MCV 104 H MCH 34.7 H MCHC 33.2 RDW 15.1 H Plt Count 164 Seg Neutrophils % 54.1 Lymphocytes % 25.9 Monocytes % 9.5 Eosinophils % 9.9 H Basophils % 0.6 Absolute Neutrophils 2.5 Absolute Lymphocytes 1.2 Absolute Monocytes 0.4 Absolute Eosinophils 0.5 Absolute Basophils 0.0 PT INR VBG pH VBG pCO2 VBG HCO3 VBG Base Excess Sodium Potassium Chloride Carbon Dioxide Anion Gap BUN Creatinine Est GFR ( Amer) Est GFR (Non-Af Amer) Glucose Hemoglobin A1c % Calcium Magnesium 2.0 Total Bilirubin Direct Bilirubin Neonat Total Bilirubin Neonat Direct Bilirubin Neonat Indirect Bili AST ALT Alkaline Phosphatase Creatine Kinase CK-MB (CK-2) 0.63 Troponin I 0.018 NT-Pro-B Natriuret Pep Total Protein Albumin Triglycerides 81 Cholesterol 123.48 LDL Cholesterol Direct 85 VLDL Cholesterol 16.0 HDL Cholesterol 38 L TSH Free T4 Free T3 pg/mL Digoxin 0.90 03/31/19 03/31/19 03/31/19 06:48 06:48 06:48 WBC RBC Hgb Hct MCV MCH MCHC RDW Plt Count Seg Neutrophils % Lymphocytes % Monocytes % Eosinophils % Basophils % Absolute Neutrophils Absolute Lymphocytes Absolute Monocytes Absolute Eosinophils Absolute Basophils PT INR VBG pH 7.44 H VBG pCO2 47.9 VBG HCO3 32.1 H VBG Base Excess 6.9 Sodium Potassium Chloride Carbon Dioxide Anion Gap BUN Creatinine Est GFR ( Amer) Est GFR (Non-Af Amer) Glucose Hemoglobin A1c % 4.9 Calcium Magnesium Total Bilirubin Direct Bilirubin Neonat Total Bilirubin Neonat Direct Bilirubin Neonat Indirect Bili AST ALT Alkaline Phosphatase Creatine Kinase CK-MB (CK-2) Troponin I NT-Pro-B Natriuret Pep Total Protein Albumin Triglycerides Cholesterol LDL Cholesterol Direct VLDL Cholesterol HDL Cholesterol TSH 16.20 H Free T4 1.06 Free T3 pg/mL 3.41 Digoxin 03/31/19 03/31/19 13:35 13:35 WBC RBC Hgb Hct MCV MCH MCHC RDW Plt Count Seg Neutrophils % Lymphocytes % Monocytes % Eosinophils % Basophils % Absolute Neutrophils Absolute Lymphocytes Absolute Monocytes Absolute Eosinophils Absolute Basophils PT INR VBG pH VBG pCO2 VBG HCO3 VBG Base Excess Sodium Potassium Chloride Carbon Dioxide Anion Gap BUN Creatinine Est GFR ( Amer) Est GFR (Non-Af Amer) Glucose Hemoglobin A1c % Calcium Magnesium Total Bilirubin Direct Bilirubin Neonat Total Bilirubin Neonat Direct Bilirubin Neonat Indirect Bili AST ALT Alkaline Phosphatase Creatine Kinase 32 L CK-MB (CK-2) 0.62 Troponin I 0.013 NT-Pro-B Natriuret Pep Total Protein Albumin Triglycerides Cholesterol LDL Cholesterol Direct VLDL Cholesterol HDL Cholesterol TSH Free T4 Free T3 pg/mL Digoxin Chest X-Ray 03/30/19 19:10 IMPRESSION: 7 cm Confluent opacity -consolidation in the left lateral mid lung with adjacent increased interstitial -nodular opacities and small left pleural effusion. Chest CT 03/31/19 07:00 IMPRESSION: Vascular congestion. Bilateral pleural effusions right greater than left. Fluid in the fissures on the left. Left upper lobe pneumonia. Digoxin [Lanoxin 0.125 mg Tablet] 0.125 mg PO DAILY 03/30/19 Furosemide [Lasix 20 mg Tablet] 20 mg PO QAM 03/30/19 Levothyroxine Sodium [Synthroid 0.088 mg Tablet] 88 mcg PO DAILY 03/30/19 Metoprolol Succinate [Toprol Xl] 25 mg PO DAILY 03/30/19 Potassium Chloride [K-Tab] 10 meq PO DAILY 03/30/19 Tamsulosin HCl [Flomax] 0.4 mg PO DAILY 03/30/19
--- NOTE | 2019-03-31 16:16 | ADVANCED CARE ---
Attendance: The patient's son and [id number]. Dr. Sales and myself. Resuscitation Status: Do Not Resuscitate Discussion: On admission the patient was a full code. Cardiology was seeing the patient and read the echocardiogram. The patient has injection fraction of approximately 15%. Dr. Sales initiated the conversation about the patient's poor prognosis. The patient's son is a celebrity manager. He is very familiar with his father's history which includes alcoholism and tobacco. He already has depressed ejection fraction of approximately 15%. There are suspicious areas on the x-ray that could be a possible malignancy. The patient's son reports that he has had multiple discussions with the patient in the past. The patient would not want to be on a ventilator or undergo cardiac resuscitation. The patient lives with his son. His son is the designated decision maker. There is no cur rent documentation however all were in agreement that a change to DNR status was completely appropriate. I reassured the son that this does not change our treatment plan at all. Will still be very aggressive. In the event that there is a catastrophic event we would not resuscitate the patient. Care Planning Goals: Change CODE STATUS to DNR Document(s) Completed: None Time Spent: 20 minutes
--- NOTE | 2019-03-31 16:28 | PDOC PROGRESS REPORT ---
Subjective Progress Note for:: 03/31/19 Subjective:: The patient awakens briefly at times. His son and [id number] are at the bedside. They are able to provide additional history. Reason For Visit: ACUTE ON CHRONIC SYSTOLIC CONGESTIVE HEART FAILURE Physical Exam Vital Signs: Temp Pulse Resp BP Pulse Ox 98.3 F 70 24 H 90/54 L 99 03/31/19 12:00 03/31/19 12:00 03/31/19 12:00 03/31/19 12:00 03/31/19 12:00 Intake & Output 03/30/19 03/31/19 04/01/19 06:59 06:59 06:59 Output Total 1025 Balance -1025 Weight 73.8 kg General appearance: PRESENT: no acute distress - Resting comfortably, thin, well-developed Head exam: PRESENT: normocephalic Ear exam: PRESENT: normal external ear exam Respiratory exam: PRESENT: rales, symmetrical, unlabored. ABSENT: accessory muscle use, rhonchi, tachypnea, wheezes Cardiovascular exam: PRESENT: irregular rhythm GI/Abdominal exam: PRESENT: normal bowel sounds, soft. ABSENT: distended, tende rness Rectal exam: PRESENT: deferred Gentrourinary exam: ABSENT: indwelling catheter Extremities exam: PRESENT: pedal edema, other - 3+ edema. ABSENT: calf tenderness Neurological exam: ABSENT: awake - The patient had a long night in the emergency department. During the encounter he barely opens his eyes. Psychiatric exam: ABSENT: agitated Focused psych exam: ABSENT: restlessness Skin exam: PRESENT: other - Multiple ecchymotic lesions especially the right arm. Results Laboratory Results: 03/31/19 06:48 03/30/19 18:45 03/30/19 03/30/19 03/31/19 18:45 18:45 06:48 WBC 5.2 4.6 RBC 3.57 L 3.34 L Hgb 12.3 L 11.6 L Hct 37.5 L 34.9 L MCV 105 H 104 H MCH 34.6 H 34.7 H MCHC 32.9 33.2 RDW 15.0 H 15.1 H Plt Count 185 164 Seg Neutrophils % 47.7 54.1 Lymphocytes % 31.9 25.9 Monocytes % 11.3 9.5 Eosinophils % 8.4 H 9.9 H Basophils % 0.7 0.6 Absolute Neutrophils 2.5 2.5 Absolute Lymphocytes 1.6 1.2 Absolute Monocytes 0.6 0.4 Absolute Eosinophils 0.4 0.5 Absolute Basophils 0.0 0.0 VBG pH VBG pCO2 VBG HCO3 VBG Base Excess Sodium 143.3 Potassium 3.8 Chloride 105 Carbon Dioxide 30 Anion Gap 8 BUN 15 Creatinine 0.80 Est GFR ( Amer) > 60 Est GFR (Non-Af Amer) > 60 Glucose 83 Calcium 8.6 Magnesium Total Bilirubin 0.9 AST 30 ALT 36 Alkaline Phosphatase 99 Total Protein 6.2 L Albumin 3.0 L Triglycerides Cholesterol LDL Cholesterol Direct VLDL Cholesterol HDL Cholesterol TSH Free T4 Free T3 pg/mL 03/31/19 03/31/19 03/31/19 06:48 06:48 06:48 WBC RBC Hgb Hct MCV MCH MCHC RDW Plt Count Seg Neutrophils % Lymphocytes % Monocytes % Eosinophils % Basophils % Absolute Neutrophils Absolute Lymphocytes Absolute Monocytes Absolute Eosinophils Absolute Basophils VBG pH 7.44 H VBG pCO2 47.9 VBG HCO3 32.1 H VBG Base Excess 6.9 Sodium Potassium Chloride Carbon Dioxide Anion Gap BUN Creatinine Est GFR ( Amer) Est GFR (Non-Af Amer) Glucose Calcium Magnesium 2.0 Total Bilirubin AST ALT Alkaline Phosphatase Total Protein Albumin Triglycerides 81 Cholesterol 123.48 LDL Cholesterol Direct 85 VLDL Cholesterol 16.0 HDL Cholesterol 38 L TSH 16.20 H Free T4 1.06 Free T3 pg/mL 3.41 03/30/19 03/30/19 03/31/19 18:45 18:45 00:52 Creatine Kinase 34 L CK-MB (CK-2) Troponin I 0.019 NT-Pro-B Natriuret Pep 8380 H 03/31/19 03/31/19 03/31/19 00:52 06:48 06:48 Creatine Kinase 31 L CK-MB (CK-2) 0.66 0.63 Troponin I 0.018 0.018 NT-Pro-B Natriuret Pep Impressions: Chest X-Ray 03/30/19 19:10 IMPRESSION: 7 cm Confluent opacity -consolidation in the left lateral mid lung with adjacent increased interstitial -nodular opacities and small left pleural effusion. Chest CT 03/31/19 07:00 IMPRESSION: Vascular congestion. Bilateral pleural effusions right greater than left. Fluid in the fissures on the left. Left upper lobe pneumonia. Assessment and Plan - Diagnosis (1) Acute respiratory failure with hypoxia Is this a current diagnosis for this admission?: Yes Plan: The patient was hypoxic and requires oxygen supplementation. Etiology of his failure is likely mixed but predominantly systolic congestive heart failure considering his history, poor ejection fraction and effusion. Chronic obstructive pulmonary disease is likely contributing. Continue oxygen therapy. Wean if tolerated. (2) Acute on chronic systolic congestive heart failure Is this a current diagnosis for this admission?: Yes (3) Abnormality of lung on chest x-ray Is this a current diagnosis for this admission?: Yes Plan: The patient's chest x-ray was suspicious and a CT scan was obtained. There is an overall presence of congestive failure however there is a focal area with possible nodule and suspicion for malignancy. I did have oncology see the patient in the event that the family wishes more definitive diagnosis prior to making any other treatment plan changes. Further evaluation will best be served once the patient's heart failure is well controlled. He does have risk factors such as his tobacco and alcohol use. (4) Chronic atrial fibrillation Is this a current diagnosis for this admission?: Yes (5) Chronic obstructive pulmonary disease Qualifiers: Chronic bronchitis type: unspecified Is this a current diagnosis for this admission?: Yes Plan: The patient has a long smoking history. Congestive failure is the predominant pathology most likely. Regardless the patient will be placed on nebulizer treatments including DuoNeb's and budesonide. No IV steroids at this point. (6) Tobacco use disorder, severe, dependence Is this a current diagnosis for this admission?: Yes Plan: We will need to try and encourage tobacco cessation. (7) Obstructive sleep apnea Is this a current diagnosis for this admission?: Yes Plan: The patient's son reports apneic episodes of anywhere from 10 to 15 seconds when he observes his father sleeping at home. The patient has loud snoring. He was offered BiPAP last night but refused to wear it. I will obtain a continuous nocturnal pulse oximetry. If this is positive then we will need to discuss the use of CPAP with the patient. If he refuses then there is no point in obtaining a CPAP machine. - Time Time Spent with patient: 25-34 minutes Medications reviewed and adjusted accordingly: Yes
--- NOTE | 2019-03-31 23:07 | EKG REPORT ---
SEVERITY:- ABNORMAL ECG - ATRIAL FIBRILLATION PREMATURE VENTRICULAR COMPLEX LEFT ANTERIOR FASCICULAR BLOCK NONSPECIFIC T ABNORMALITIES, ANT-LAT LEADS : Confirmed by: Arnie Nava 31-Mar-2019 23:07:21
[2019-04-01 05:01] LABS: ABSOLUTE EOSINOPHILS # (AUTO) 0.6 10^3/uL (0.0-0.6); ABSOLUTE LYMPHOCYTES (AUTO) 1.3 10^3/uL (0.5-4.7); ABSOLUTE MONOCYTES (AUTO) 0.5 10^3/uL (0.1-1.4); ABSOLUTE NEUT (AUTO) 2.7 10^3/uL (1.7-8.2); BASOPHILS % (AUTO) 0.6 % (0-2); HEMATOCRIT 35.5 % (37.9-51.0); MEAN CORPUSCULAR HEMOGLOBIN 34.9 pg (27.0-33.4); MEAN CORPUSCULAR HGB CONC 33.7 g/dL (32.0-36.0); MEAN CORPUSCULAR VOLUME 104 fl (80-97); MONOCYTES % (AUTO) 9.9 % (3-13); PLATELET COUNT 158 10^3/uL (150-450); RED BLOOD COUNT 3.43 10^6/uL (4.35-5.55); RED CELL DISTRIBUTION WIDTH 14.9 % (11.5-14.0); SEGMENTED NEUTROPHILS % (AUTO) 52.5 % (42-78); TOTAL CELLS COUNTED % (AUTO) 100 %; WHITE BLOOD COUNT 5.1 10^3/uL (4.0-10.5)
[2019-04-01] MEDS: HEPARIN SOD (PORCINE) 5,000 UNIT/ML 1 ML SYRINGE SUBCUT SCH ×2 (05:34→14:57)
[2019-04-01] MEDS: LEVOTHYROXINE SODIUM 0.088 MG TABLET PO SCH (05:34)
[2019-04-01 06:39] LABS: ANION GAP 10 (5-19); BLOOD UREA NITROGEN 14 mg/dL (7-20); CALCIUM 8.5 mg/dL (8.4-10.2); CARBON DIOXIDE 30 mmol/L (22-30); CHLORIDE 103 mmol/L (98-107); DIGOXIN 0.85 ng/mL (0.8-2.0); GLUCOSE 77 mg/dL (75-110); POTASSIUM 3.6 mmol/L (3.6-5.0); SODIUM 142.6 mmol/L (137-145)
[2019-04-01] MEDS ORDERED: FUROSEMIDE 20 MG TABLET PO SCH (08:00)
[2019-04-01] MEDS: LEVALBUTEROL HCL NEB 1.25 MG/3 ML AMPUL NEB SCH ×2 (08:06→16:18)
[2019-04-01] MEDS: BUDESONIDE NEB 0.5 MG/2 ML AMPUL NEB SCH ×2 (08:06→20:33)
[2019-04-01] MEDS: IPRATROPIUM BROMIDE 0.02% NEB 0.5 MG/2.5 ML AMPUL NEB SCH ×2 (08:06→16:18)
--- NOTE | 2019-04-01 08:44 | PDOC PROGRESS REPORT ---
Subjective Progress Note for:: 04/01/19 Subjective:: Patient doing generally well but reviewed echocardiogram which showed EF of only15%, otherwise reviewed official CT read, there describing a pneumonia but we will need to repeat CT within 6 to 8 weeks, I have made an appointment for him with our office within 4 weeks. Reason For Visit: ACUTE ON CHRONIC SYSTOLIC CONGESTIVE HEART FAILURE Physical Exam Vital Signs: Temp Pulse Resp BP Pulse Ox 97.9 F 87 17 105/73 96 04/01/19 04:00 04/01/19 04:00 04/01/19 04:00 04/01/19 04:00 04/01/19 04:00 Pulse Oximeter Nocturnal Start: 03/31/19 15:18 Freq: RTQ4 Status: Active Protocol: Document 04/01/19 03:51 CMI (Rec: 04/01/19 03:52 CMI [id number]) Nocturnal Pulse Oximetry Equipment Usage Equipment in Use Oxygen Delivery Method (includes room Room Air air) O2 Sat by Pulse Oximetry (92-100) 97 Continuous Pulse Oximeter Set Up No Continuous SpO2 Discontinued No Continuous SpO2 Machine # 8 Intake & Output 03/31/19 04/01/19 04/02/19 06:59 06:59 06:59 Intake Total 1130 Output Total 1025 2225 Balance -1025 -1095 Weight 73.8 kg 74.9 kg General appearance: PRESENT: no acute distress, well-developed, well-nourished Head exam: PRESENT: atraumatic, normocephalic Eye exam: PRESENT: conjunctiva pink, EOMI, PERRLA. ABSENT: scleral icterus Ear exam: PRESENT: normal external ear exam Mouth exam: PRESENT: moist, tongue midline Neck exam: ABSENT: carotid bruit, JVD, lymphadenopathy, thyromegaly Respiratory exam: PRESENT: clear to auscultation luis. ABSENT: rales, rhonchi, wheezes Cardiovascular exam: PRESENT: RRR. ABSENT: diastolic murmur, rubs, systolic murmur Pulses: PRESENT: normal dorsalis pedis pul Vascular exam: PRESENT: normal capillary refill GI/Abdominal exam: PRESENT: normal bowel sounds, soft. ABSENT: distended, guarding, mass, organolmegaly, rebound, tenderness Rectal exam: PRESENT: deferred Extremities exam: PRESENT: full ROM. ABSENT: calf tenderness, clubbing, pedal edema Neurological exam: PRESENT: alert, awake, oriented to person, oriented to place, oriented to time, oriented to situation, CN II-XII grossly intact. ABSENT: motor sensory deficit Psychiatric exam: PRESENT: appropriate affect, normal mood. ABSENT: homicidal ideation, suicidal ideation Skin exam: PRESENT: dry, intact, warm. ABSENT: cyanosis, rash Results Laboratory Results: 04/01/19 03:42 04/01/19 03:42 04/01/19 04/01/19 03:42 03:42 WBC 5.1 RBC 3.43 L Hgb 12.0 L Hct 35.5 L MCV 104 H MCH 34.9 H MCHC 33.7 RDW 14.9 H Plt Count 158 Seg Neutrophils % 52.5 Lymphocytes % 26.0 Monocytes % 9.9 Eosinophils % 11.0 H Basophils % 0.6 Absolute Neutrophils 2.7 Absolute Lymphocytes 1.3 Absolute Monocytes 0.5 Absolute Eosinophils 0.6 Absolute Basophils 0.0 Sodium 142.6 Potassium 3.6 Chloride 103 Carbon Dioxide 30 Anion Gap 10 BUN 14 Creatinine 0.84 Est GFR ( Amer) > 60 Est GFR (Non-Af Amer) > 60 Glucose 77 Calcium 8.5 03/30/19 03/30/19 03/31/19 18:45 18:45 00:52 Creatine Kinase 34 L CK-MB (CK-2) Troponin I 0.019 NT-Pro-B Natriuret Pep 8380 H 03/31/19 03/31/19 03/31/19 00:52 06:48 06:48 Creatine Kinase 31 L CK-MB (CK-2) 0.66 0.63 Troponin I 0.018 0.018 NT-Pro-B Natriuret Pep 03/31/19 03/31/19 13:35 13:35 Creatine Kinase 32 L CK-MB (CK-2) 0.62 Troponin I 0.013 NT-Pro-B Natriuret Pep Impressions: Chest X-Ray 03/30/19 19:10 IMPRESSION: 7 cm Confluent opacity -consolidation in the left lateral mid lung with adjacent increased interstitial -nodular opacities and small left pleural effusion. Chest CT 03/31/19 07:00 IMPRESSION: Vascular congestion. Bilateral pleural effusions right greater than left. Fluid in the fissures on the left. Left upper lobe pneumonia. Assessment & Plan - Diagnosis (1) Lung mass Is this a current diagnosis for this admission?: Yes Plan: Follow-up in clinic, need to repeat CT and if abnormality would still be present, plan PET/CT.
[2019-04-01] MEDS: DOCUSATE SODIUM 100 MG CAPSULE PO SCH (10:59)
[2019-04-01] MEDS: TAMSULOSIN HCL 0.4 MG CAP.SR.24H PO SCH (10:59)
[2019-04-01] MEDS: DIGOXIN 0.125 MG TABLET PO SCH (11:00)
[2019-04-01] MEDS: METOPROLOL SUCCINATE 25 MG TAB.SR.24H PO SCH (11:01)
[2019-04-01] MEDS: SPIRONOLACTONE 25 MG TABLET PO SCH (11:02)
[2019-04-01 12:39] LABS: APPEARANCE,URINE CLEAR; BILIRUBIN,URINE SMALL (NEGATIVE); GLUCOSE, URINE NEGATIVE (NEGATIVE); KETONES,URINE NEGATIVE (NEGATIVE); LEUKOCYTE ESTERASE,URINE NEGATIVE (NEGATIVE); NITRITE,URINE NEGATIVE (NEGATIVE); PROTEIN,URINE 30 mg/dL (NEGATIVE)
[2019-04-01 12:43] LABS: COLOR,URINE YELLOW
[2019-04-01] MEDS ORDERED: LEVOFLOXACIN 500 MG/D5W RTU 500 MG/100 ML RTUPB IV SCH (13:00)
--- NOTE | 2019-04-01 17:25 | PDOC PROGRESS REPORT ---
Subjective Progress Note for:: 04/01/19 Subjective:: This is 74 years old male patient was past medical history of atrial fibrillation, congestive heart failure, COPD, everyday smoker, CKD, hypothyroidism and history of lymphoma, thyroid CA and gastric CA, alcohol dependence presented with chief complaint of shortness of previous. His echocardiogram revealed diminished left chest function with ejection fraction of less than 15%. His BNP elevated to 8,300. His CT scan shows left upper lobe opacity suspicious for malignancy versus pneumonia. This morning I empirically started him on IV Levaquin. For the suspicious mass Dr. Camara consulted and he recommended to repeat the CT scan in 6 to 8 weeks. Reason For Visit: ACUTE ON CHRONIC SYSTOLIC CONGESTIVE HEART FAILURE Physical Exam Vital Signs: Temp Pulse Resp BP Pulse Ox 97.6 F 89 15 120/68 97 04/01/19 12:00 04/01/19 16:18 04/01/19 16:18 04/01/19 12:00 04/01/19 16:18 Pulse Oximeter Nocturnal Start: 03/31/19 15:18 Freq: RTQ4 Status: Complete Protocol: Document 04/01/19 03:51 CMI (Rec: 04/01/19 03:52 CMI [id number]) Nocturnal Pulse Oximetry Equipment Usage Equipment in Use Oxygen Delivery Method (includes room Room Air air) O2 Sat by Pulse Oximetry (92-100) 97 Continuous Pulse Oximeter Set Up No Continuous SpO2 Discontinued No Continuous SpO2 Machine # 8 Intake & Output 03/31/19 04/01/19 04/02/19 06:59 06:59 06:59 Intake Total 1130 100 Output Total 1025 2225 Balance -1025 -1095 100 Weight 73.8 kg 74.9 kg General appearance: PRESENT: no acute distress Head exam: PRESENT: atraumatic Eye exam: PRESENT: conjunctiva pink Neck exam: ABSENT: carotid bruit, JVD, lymphadenopathy, thyromegaly Respiratory exam: PRESENT: clear to auscultation luis. ABSENT: rales, rhonchi, wheezes Cardiovascular exam: PRESENT: RRR. ABSENT: diastolic murmur, rubs, systolic murmur Extremities exam: PRESENT: +2 edema Neurological exam: PRESENT: alert, awake, oriented to time, oriented to situation Results Laboratory Results: 04/01/19 03:42 04/01/19 03:42 0504/01/19 04/01/19 03:42 03:42 12:15 WBC 5.1 RBC 3.43 L Hgb 12.0 L Hct 35.5 L MCV 104 H MCH 34.9 H MCHC 33.7 RDW 14.9 H Plt Count 158 Seg Neutrophils % 52.5 Lymphocytes % 26.0 Monocytes % 9.9 Eosinophils % 11.0 H Basophils % 0.6 Absolute Neutrophils 2.7 Absolute Lymphocytes 1.3 Absolute Monocytes 0.5 Absolute Eosinophils 0.6 Absolute Basophils 0.0 Sodium 142.6 Potassium 3.6 Chloride 103 Carbon Dioxide 30 Anion Gap 10 BUN 14 Creatinine 0.84 Est GFR ( Amer) > 60 Est GFR (Non-Af Amer) > 60 Glucose 77 Calcium 8.5 Urine Color YELLOW Urine Appearance CLEAR Urine pH 7.0 Ur Specific [place] 1.030 Urine Protein 30 H Urine Glucose (UA) NEGATIVE Urine Ketones NEGATIVE Urine Blood NEGATIVE Urine Nitrite NEGATIVE Ur Leukocyte Esterase NEGATIVE Urine WBC (Auto) 3 Urine RBC (Auto) 1 03/30/19 03/30/19 03/31/19 18:45 18:45 00:52 Creatine Kinase 34 L CK-MB (CK-2) Troponin I 0.019 NT-Pro-B Natriuret Pep 8380 H 03/31/19 03/31/19 03/31/19 00:52 06:48 06:48 Creatine Kinase 31 L CK-MB (CK-2) 0.66 0.63 Troponin I 0.018 0.018 NT-Pro-B Natriuret Pep 03/31/19 03/31/19 13:35 13:35 Creatine Kinase 32 L CK-MB (CK-2) 0.62 Troponin I 0.013 NT-Pro-B Natriuret Pep Impressions: Chest X-Ray 03/30/19 19:10 IMPRESSION: 7 cm Confluent opacity -consolidation in the left lateral mid lung with adjacent increased interstitial -nodular opacities and small left pleural effusion. Chest CT 03/31/19 07:00 IMPRESSION: Vascular congestion. Bilateral pleural effusions right greater than left. Fluid in the fissures on the left. Left upper lobe pneumonia. Assessment and Plan - Diagnosis (1) Acute on chronic systolic (congestive) heart failure Is this a current diagnosis for this admission?: Yes Plan: Patient reported his shortness of breath is relatively subsided. I will contin ue the current regimen. (2) Chronic a-fib Is this a current diagnosis for this admission?: Yes Plan: Rate controlled. (3) Tobacco dependence Is this a current diagnosis for this admission?: Yes Plan: Counseled and encouraged to quit smoking. (4) Left upper lobe opacity Is this a current diagnosis for this admission?: Yes Plan: Suspicious for malignancy versus pneumonia. Patient empirically started on Levaquin. Patient evaluated by Dr. Hurd who recommended to repeat the CT scan in 6 to 8 weeks.
[2019-04-02] MEDS: IPRATROPIUM BROMIDE 0.02% NEB 0.5 MG/2.5 ML AMPUL NEB SCH ×2 (00:37→08:26)
[2019-04-02] MEDS: LEVALBUTEROL HCL NEB 1.25 MG/3 ML AMPUL NEB SCH ×2 (00:37→08:26)
[2019-04-02] MEDS: HEPARIN SOD (PORCINE) 5,000 UNIT/ML 1 ML SYRINGE SUBCUT SCH ×2 (03:51→06:15)
[2019-04-02] MEDS ORDERED: FUROSEMIDE INJ/PF 20 MG/2 ML SDV IV SCH (06:00)
[2019-04-02] MEDS: LEVOTHYROXINE SODIUM 0.088 MG TABLET PO SCH (06:08)
--- NOTE | 2019-04-02 08:09 | PDOC PROGRESS REPORT ---
Subjective Progress Note for:: 04/02/19 Subjective:: Patient seems better today, looks better Reason For Visit: ACUTE ON CHRONIC SYSTOLIC CONGESTIVE HEART FAILURE Physical Exam Vital Signs: Temp Pulse Resp BP Pulse Ox 97.8 F 102 H 18 108/72 98 04/02/19 03:22 04/02/19 07:00 04/02/19 03:22 04/02/19 03:22 04/02/19 03:22 Pulse Oximeter Nocturnal Start: 03/31/19 15:18 Freq: RTQ4 Status: Complete Protocol: Document 04/01/19 03:51 CMI (Rec: 04/01/19 03:52 CMI [id number]) Nocturnal Pulse Oximetry Equipment Usage Equipment in Use Oxygen Delivery Method (includes room Room Air air) O2 Sat by Pulse Oximetry (92-100) 97 Continuous Pulse Oximeter Set Up No Continuous SpO2 Discontinued No Continuous SpO2 Machine # 8 Intake & Output 04/01/19 04/02/19 04/03/19 06:59 06:59 06:59 Intake Total 1130 1345 Output Total 2225 1900 Balance -1095 -197 Weight 74.9 kg 74.7 kg General appearance: PRESENT: no acute distress, well-developed, well-nourished Head exam: PRESENT: atraumatic, normocephalic Eye exam: PRESENT: conjunctiva pink, EOMI, PERRLA. ABSENT: scleral icterus Ear exam: PRESENT: normal external ear exam Mouth exam: PRESENT: moist, tongue midline Neck exam: ABSENT: carotid bruit, JVD, lymphadenopathy, thyromegaly Respiratory exam: PRESENT: clear to auscultation luis. ABSENT: rales, rhonchi, wheezes Cardiovascular exam: PRESENT: RRR. ABSENT: diastolic murmur, rubs, systolic murmur Pulses: PRESENT: normal dorsalis pedis pul Vascular exam: PRESENT: normal capillary refill GI/Abdominal exam: PRESENT: normal bowel sounds, soft. ABSENT: distended, guarding, mass, organolmegaly, rebound, tenderness Rectal exam: PRESENT: deferred Extremities exam: PRESENT: full ROM. ABSENT: calf tenderness, clubbing, pedal edema Neurological exam: PRESENT: alert, awake, oriented to person, oriented to place, oriented to time, oriented to situation, CN II-XII grossly intact. ABSENT: m otor sensory deficit Psychiatric exam: PRESENT: appropriate affect, normal mood. ABSENT: homicidal ideation, suicidal ideation Skin exam: PRESENT: dry, intact, warm. ABSENT: cyanosis, rash Results Laboratory Results: 04/01/19 03:42 04/01/19 03:42 04/01/19 12:15 Urine Color YELLOW Urine Appearance CLEAR Urine pH 7.0 Ur Specific [place] 1.030 Urine Protein 30 H Urine Glucose (UA) NEGATIVE Urine Ketones NEGATIVE Urine Blood NEGATIVE Urine Nitrite NEGATIVE Ur Leukocyte Esterase NEGATIVE Urine WBC (Auto) 3 Urine RBC (Auto) 1 03/30/19 03/30/19 03/31/19 18:45 18:45 00:52 Creatine Kinase 34 L CK-MB (CK-2) Troponin I 0.019 NT-Pro-B Natriuret Pep 8380 H 03/31/19 03/31/19 03/31/19 00:52 06:48 06:48 Creatine Kinase 31 L CK-MB (CK-2) 0.66 0.63 Troponin I 0.018 0.018 NT-Pro-B Natriuret Pep 03/31/19 03/31/19 13:35 13:35 Creatine Kinase 32 L CK-MB (CK-2) 0.62 Troponin I 0.013 NT-Pro-B Natriuret Pep Impressions: Chest X-Ray 03/30/19 19:10 IMPRESSION: 7 cm Confluent opacity -consolidation in the left lateral mid lung with adjacent increased interstitial -nodular opacities and small left pleural effusion. Chest CT 03/31/19 07:00 IMPRESSION: Vascular congestion. Bilateral pleural effusions right greater than left. Fluid in the fissures on the left. Left upper lobe pneumonia. Assessment & Plan - Diagnosis (1) Lung mass Is this a current diagnosis for this admission?: Yes Plan: Patient has appointment to see us in 4 weeks, we will repeat imaging at that time, if abnormality still exists and we will proceed with PET/CT and then biopsies.
[2019-04-02] MEDS: BUDESONIDE NEB 0.5 MG/2 ML AMPUL NEB SCH (08:26)
--- NOTE | 2019-04-02 09:32 | PDOC DISCHARGE SUMMARY ---
General - Admit/Disc Date/PCP Admission Date/Primary Care Provider: 03/30/19 20:59 PARAS MARC MD Discharge Date: 04/02/19 - Discharge Diagnosis (1) Acute on chronic systolic (congestive) heart failure Is this a current diagnosis for this admission?: Yes (2) Chronic a-fib Is this a current diagnosis for this admission?: Yes (3) Tobacco dependence Is this a current diagnosis for this admission?: Yes (4) Left upper lobe opacity Is this a current diagnosis for this admission?: Yes - Additional Information Resuscitation Status: Do Not Resuscitate Home Medications: Digoxin [Lanoxin 0.125 mg Tablet] 0.125 mg PO DAILY 03/30/19 Furosemide [Lasix 20 mg Tablet] 20 mg PO QAM 03/30/19 Levothyroxine Sodium [Synthroid 0.088 mg Tablet] 88 mcg PO DAILY 03/30/19 Metoprolol Succinate [Toprol Xl] 25 mg PO DAILY 03/30/19 Potassium Chloride [K-Tab] 10 meq PO DAILY 03/30/19 Tamsulosin HCl [Flomax] 0.4 mg PO DAILY 03/30/19 History of Present Illness History of Present Illness: NUBIA MAN is a 73 year old male who presented to the emergency room with a 2- day history of dyspnea. He admits progressively worsening dyspnea on exertion accompanied by increased swelling in his lower extremities and exertional hypoxia noted on a home O2 saturation monitor. His exertional dyspnea is now moderate to severe and he admits prior similar episodes related to his chronic systolic congestive heart failure. He has not identified any other aggravating or ameliorating factors for this episode of dyspnea. In the emergency room he was found to have an elevated BNP with significant peripheral edema and a chest x-ray consistent with congestive heart failure. Additionally a 7 cm opacity was noted in the left mid and upper lung angelo. Patient was subsequently admitted to the hospital for further evaluation and treatment. Hospital Course Hospital Course: This is 74 years old male patient was past medical history of atrial fibrillation, congestive heart failure, COPD, everyday smoker, CKD, hypothyroidism and history of lymphoma, thyroid CA and gastric CA, alcohol dependence presented with chief complaint of shortness of previous. His echocardiogram revealed diminished left chest function with ejection fraction of less than 15%. His BNP elevated to 8,300. His CT scan shows left upper lobe opacity suspicious for malignancy versus pneumonia. Patient has been on Levaquin empirically. This morning I seen patient sitting up at the bedside. He is awake alert oriented he is not in pain or distress. His vital signs and blood works are unremarkable. Patient is stable enough to go home. I am sending home with cardioprotective medications and Levaquin. For the suspicious left upper lobe mass I will set up follow-up with Dr. Camara at his oncology office. Physical Exam Vital Signs: Temp Pulse Resp BP Pulse Ox 97.6 F 102 H 19 116/90 H 100 04/02/19 06:12 04/02/19 07:00 04/02/19 06:12 04/02/19 06:12 04/02/19 06:12 Pulse Oximeter Nocturnal Start: 03/31/19 15:18 Freq: RTQ4 Status: Complete Protocol: Document 04/01/19 03:51 CMI (Rec: 04/01/19 03:52 CMI [id number]) Nocturnal Pulse Oximetry Equipment Usage Equipment in Use Oxygen Delivery Method (includes room Room Air air) O2 Sat by Pulse Oximetry (92-100) 97 Continuous Pulse Oximeter Set Up No Continuous SpO2 Discontinued No Continuous SpO2 Machine # 8 Intake & Output 04/01/19 04/02/19 04/03/19 06:59 06:59 06:59 Intake Total 1130 1345 Output Total 2229 1900 Balance -1095 -215 Weight 74.9 kg 74.7 kg General appearance: PRESENT: no acute distress Head exam: PRESENT: atraumatic Eye exam: PRESENT: conjunctiva pink Neck exam: ABSENT: carotid bruit, JVD, lymphadenopathy, thyromegaly Respiratory exam: PRESENT: clear to auscultation luis. ABSENT: rales, rhonchi, wheezes Cardiovascular exam: PRESENT: RRR. ABSENT: diastolic murmur, rubs, systolic murmur Neurological exam: PRESENT: alert, awake, oriented to time, oriented to situation Results Laboratory Results: 04/01/19 03:42 04/01/19 03:42 04/01/19 12:15 Urine Color YELLOW Urine Appearance CLEAR Urine pH 7.0 Ur Specific [place] 1.030 Urine Protein 30 H Urine Glucose (UA) NEGATIVE Urine Ketones NEGATIVE Urine Blood NEGATIVE Urine Nitrite NEGATIVE Ur Leukocyte Esterase NEGATIVE Urine WBC (Auto) 3 Urine RBC (Auto) 1 03/30/19 03/30/19 03/31/19 18:45 18:45 00:52 Creatine Kinase 34 L CK-MB (CK-2) Troponin I 0.019 NT-Pro-B Natriuret Pep 8380 H 03/31/19 03/31/19 03/31/19 00:52 06:48 06:48 Creatine Kinase 31 L CK-MB (CK-2) 0.66 0.63 Troponin I 0.018 0.018 NT-Pro-B Natriuret Pep 03/31/19 03/31/19 13:35 13:35 Creatine Kinase 32 L CK-MB (CK-2) 0.62 Troponin I 0.013 NT-Pro-B Natriuret Pep Impressions: Chest X-Ray 03/30/19 19:10 IMPRESSION: 7 cm Confluent opacity -consolidation in the left lateral mid lung with adjacent increased interstitial -nodular opacities and small left pleural effusion. Chest CT 03/31/19 07:00 IMPRESSION: Vascular congestion. Bilateral pleural effusions right greater than left. Fluid in the fissures on the left. Left upper lobe pneumonia. Qualifiers - * PATIENT BEING DISCHARGED WITH ANY OF THE FOLLOWING DIAGNOSIS: No Acute Heart Failure Is this a Heart Failure Patient?: Yes Documentation of LVEF assessment?: Yes b) Discharges on ARB?: N/A-Discharged on ARNI c) Discharged on ARNI?: Yes d) Discharged on evidence-based Beta jasen(carvedilol, sustained release metoprolol succinate, or bisoprolol)?: Yes e) For LVEF <35%, discharged on Aldosterone antagonist?: No-document contraincations Reason(s) not discharged on Aldosterone antagonist for LVEF < 35%: Other - pt is on ARNI 3. Anticoagulant therapy for permanect/persistent/paraoxysmal Afib or Aflutter: N/A Reason(s) not discharged on anticoagulant therapy for permanect/persistent/paraoxysmal Afib or Aflutter: Other - not indicated Follow-up Appointment scheduled within 7 days?: Yes
[2019-04-02] MEDS ORDERED: DIGOXIN 0.25 MG TABLET PO SCH (10:00)
[2019-04-02] MEDS: SPIRONOLACTONE 25 MG TABLET PO SCH (10:00)
[2019-04-02] MEDS: METOPROLOL SUCCINATE 25 MG TAB.SR.24H PO SCH (10:01)
[2019-04-02] MEDS: DOCUSATE SODIUM 100 MG CAPSULE PO SCH (10:01)
[2019-04-02] MEDS: TAMSULOSIN HCL 0.4 MG CAP.SR.24H PO SCH (10:01)
[2019-04-02 10:14] VITALS: BP 110/76
== END 2019-04-02 10:13 | disposition home or self-care (01) | DRG 291 ==
LOC: ER 18:25 → EH 20:59 → 4N 03-31
PROVIDERS: ADMIT Emergency Medicine; ATTEND Emergency Medicine
PROC: 5A09457 Assistance with Respiratory Ventilation, 24-96 Consecutive Hours, Continuous Positive Airway Pressure (ICD-10-PCS; principal; 2019-03-31)
PROC: 3E0F73Z Introduction of Anti-inflammatory into Respiratory Tract, Via Natural or Artificial Opening (ICD-10-PCS; 2019-03-31)
DX: I13.0 Hypertensive heart and chronic kidney disease with heart failure and stage 1 through stage 4 chronic kidney disease, or unspecified chronic kidney disease (principal); I50.23 Acute on chronic systolic (congestive) heart failure; J18.9 Pneumonia, unspecified organism; J96.01 Acute respiratory failure with hypoxia; J44.0 Chronic obstructive pulmonary disease with (acute) lower respiratory infection; I48.2 Chronic atrial fibrillation; N18.9 Chronic kidney disease, unspecified; F10.20 Alcohol dependence, uncomplicated; E89.0 Postprocedural hypothyroidism; Y83.6 Removal of other organ (partial) (total) as the cause of abnormal reaction of the patient, or of later complication, without mention of misadventure at the time of the procedure; G30.0 Alzheimer's disease with early onset; F02.80 Dementia in other diseases classified elsewhere, unspecified severity, without behavioral disturbance, psychotic disturbance, mood disturbance, and anxiety; F17.210 Nicotine dependence, cigarettes, uncomplicated; G47.33 Obstructive sleep apnea (adult) (pediatric); Z79.899 Other long term (current) drug therapy; Z85.72 Personal history of non-Hodgkin lymphomas; Z85.850 Personal history of malignant neoplasm of thyroid; Z85.028 Personal history of other malignant neoplasm of stomach; Z79.890 Hormone replacement therapy; Z99.81 Dependence on supplemental oxygen; Z83.3 Family history of diabetes mellitus; Z80.8 Family history of malignant neoplasm of other organs or systems; Z82.49 Family history of ischemic heart disease and other diseases of the circulatory system
CPT/HCPCS: 36415; 71045; 71260; 80048; 80053; 80061; 80162; 81001; 82550; 82553; 82803; 83036; 83735; 83880; 84439; 84443; 84481; 84484; 85025; 85610; 93005; 93010; 93306; 94640; 94660; 94762; 96374; 99285; J1160; J1644; J1940; J1956; J3490

== ENCOUNTER → 2019-05-07 | Outpatient (CLI) | payer MEDICARE ==
--- NOTE | 2019-05-07 09:10 | RADIOLOGY REPORT (SQ) ---
EXAM DESCRIPTION: CT CHEST WITH COMPLETED DATE/TIME: 05/07/2019 8:19 am REASON FOR STUDY: SOLITARY PULMONARY NODULE R91.1 SOLITARY PULMONARY NODULE COMPARISON: 03/31/2019 TECHNIQUE: CT scan of the chest performed using helical scanning technique with dynamic intravenous contrast injection. Images reviewed with lung, soft tissue and bone windows. Reconstructed coronal and sagittal MPR and MIP images reviewed. All images stored on PACS. All CT scanners at this facility use dose modulation, iterative reconstruction, and/or weight based d osing when appropriate to reduce radiation dose to as low as reasonably achievable (ALARA). [facility]: Dose Right [facility]: CareDose [facility]: Dose Right [facility]: Teradose 4D [facility]: IAT-Auto CONTRAST TYPE AND DOSE: contrast/concentration: Isovue 350.00 mg/ml; Total Contrast Delivered: 80.0 ml; Total Saline Delivered: 55.0 ml RENAL FUNCTION: Creatinine 0.9 RADIATION DOSE: CT Rad equipment meets quality standard of care and radiation dose reduction techniq ues were employed. CTDIvol: 7.9 mGy. DLP: 311 mGy-cm. . LIMITATIONS: None. FINDINGS: LUNGS AND PLEURA: Interval improvement in the appearance of the lungs since the previous examination with significant decrease in the diffuse bilateral ground-glass opacities in the lungs, m ild residual remains in the lower lobes and left lingula. Interval resolution of the left upper lobe ground-glass consolidation. Significant decrease fissural fluid on the left, with mild residual rem aining. Persistent decreasing bilateral pleural effusions, mild residual remains on the right and ve ry small residual on the left. Emphysematous changes in the lungs. Prior granulomatous disease. No pneumothorax. Dependent secret ion at the level of the cyndi, midline aspect, axial image 52, series 4. The central airways are ot herwise clear. HILAR AND MEDIASTINAL STRUCTURES: Significant decrease in number and size of the mildly prominent ap pearing mediastinal lymph nodes. Prior granulomatous disease, unchanged findings. HEART AND VASCULAR STRUCTURES: Atherosclerotic changes involving the thoracic aorta. Focal areas of coronary artery calcification. Cardiomegaly. No central pulmonary emboli. No pericardial effusion. HARDWARE: None in the chest. UPPER ABDOMEN: No significant interval changes. Limited examination. THYROID AND OTHER SOFT TISSUES: No masses. No adenopathy. BONES: As on the previous examination, healing fracture proximal- mid body of the sternum. OTHER: No other significant finding. IMPRESSION: 1. Since the previous examination dated 03/31/2019, interval improvement in the appearanc e of the lungs with decrease in the bilateral ground-glass opacities in the lungs and resolution of t he left upper lobe ground-glass consolidation. Bilateral pleural effusions have decreased with mild residual remaining on the right and very small residual on the left. 2. Emphysematous changes in the lungs. Prior granulomatous disease. 3. Significant decrease in number and size of the mildly prominent appearing mediastinal lymph nodes . 4. Healing sternal fracture. 5. Additional findings as above. TECHNICAL DOCUMENTATION: JOB ID: [id number] Quality ID # [id number]: Final reports with documentation of one or more dose reduction techniques (e.g., Au tomated exposure control, adjustment of the mA and/or kV according to patient size, use of iterative reconstruction technique) 2010 [employer]- All Rights Reserved Reading location - IP/workstation name: [email or web address]
== END ==
LOC: RAD 07:59
PROVIDERS: ATTEND Internal Medicine
DX: S22.20XD Unspecified fracture of sternum, subsequent encounter for fracture with routine healing (principal); X58.XXXD Exposure to other specified factors, subsequent encounter; R91.1 Solitary pulmonary nodule
CPT/HCPCS: 71260